=== PATIENT | female | born 1970 | race Asian ===

== ENCOUNTER → 2017-05-16 | Outpatient (CLI) | payer BC | LOC: FIMAGING 12:35 | PROVIDERS: ATTEND Family Medicine | DX: Z12.31 Encounter for screening mammogram for malignant neoplasm of breast (principal) ==

== ENCOUNTER → 2017-05-31 | Outpatient (CLI) | payer BC | LOC: FIMAGING 13:30 | PROVIDERS: ATTEND Family Medicine | DX: N63.10 Unspecified lump in the right breast, unspecified quadrant (principal) ==

== ENCOUNTER → 2017-06-24 | Outpatient (CLI) | payer BC ==
[~2017-06-24] MED LIST: BUPIVACAINE 0.5% 30 ML SDV ONE; LIDOCAINE 1% 300 MG/30 ML SDV ONE; THROMBIN (BOVINE) 5,000 UNIT VIAL TP ONE
== END ==
LOC: FIMAGING 07:23
PROVIDERS: ATTEND Family Medicine
PROC: 0HBT3ZX Excision of Right Breast, Percutaneous Approach, Diagnostic (ICD-10-PCS; principal; 2017-06-24)
DX: C50.811 Malignant neoplasm of overlapping sites of right female breast (principal); C50.511 Malignant neoplasm of lower-outer quadrant of right female breast; N60.11 Diffuse cystic mastopathy of right breast

== ENCOUNTER → 2017-07-03 | Outpatient (CLI) | payer BC ==
[~2017-07-03] MED LIST changes: -BUPIVACAINE 0.5% 30 ML SDV ONE; +GADOBUTROL 10 ML VIAL IVP ONE; -LIDOCAINE 1% 300 MG/30 ML SDV ONE; -THROMBIN (BOVINE) 5,000 UNIT VIAL TP ONE
== END ==
LOC: FIMAGING 09:06
PROVIDERS: ATTEND Surgery
DX: C50.411 Malignant neoplasm of upper-outer quadrant of right female breast (principal)
CPT/HCPCS: 0159T; A9585; C8908

== ENCOUNTER 2017-07-19 11:56 | Observation (INO) | payer BC ==
--- NOTE | 2017-07-18 20:42 | GHP ---
[f rep st] PREOP HISTORY AND PHYSICAL DATE OF ADMISSION: 07/19/2017 DATE OF SURGERY: 07/19/2017. PREOPERATIVE DIAGNOSIS: Right breast cancer. HISTORY OF PRESENT ILLNESS: The patient is a 47-year-old woman, with a new diagnosis of right breast invasive ductal carcinoma. She first developed discomfort in her outer right breast in January. She found that this was related to anxiety and stress with her job. The pain then escalated so s he went in for an ultrasound on 05/16/2017. She had a diagnostic mammogram and ultrasound performed on 05/31/2017, which showed 2 hypoechoic, solid, nodular lesions of the right breast in 6 o'clock pos ition, BI-RADS 4. An ultrasound-guided breast biopsy on 06/24/2017, revealed invasive ductal carcino ma, estrogen negative, progesterone negative, HER-2/mejia was unable to be performed, Ki-67 of 50%. Sh faby had genetic testing performed, which showed a variant of unknown significance. In addition, she mcdaniel d a breast MRI performed on 07/03/2017. This showed the node cancer in the right breast at 6 o'clock position. The 2 lesions are 1.5 cm apart. There is a small focus of abnormal enhancement in the up per-inner quadrant of the left breast, which required further evaluation. However, before she had fo llowup imaging performed, the patient decided to proceed with bilateral mastectomy. PAST MEDICAL HISTORY: None. PAST SURGICAL HISTORY: None. ALLERGIES: Neosporin. FAMILY HISTORY: Significant for coronary artery disease in her father and paternal grandfather. SOCIAL HISTORY: She is . She has 2 children. 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 She denies tobacc o, alcohol, or recreational drug use. REVIEW OF SYSTEMS: A 10-point review of systems is negative aside from the HPI. PHYSICAL EXAMINATION: GENERAL: Pleasant, well-developed, well-nourished woman, in no acute distress . HEENT: Normocephalic, atraumatic. No hearing deficits. Pupils equal and round. No scleral icte edward. Mucous membranes moist. NECK: Trachea midline. RESPIRATORY: Clear to auscultation bilateral ly. No increased work of breathing. CARDIOVASCULAR: Regular rate and rhythm. No peripheral edema. BREASTS: Performed in upright and supine position, she has evidence of previous biopsy of the righ t breast. She is tender to palpation of the right upper-outer breast. No overlying skin changes. N o nipple drainage bilaterally. No other palpable masses. LYMPH: No supraclavicular, cervical, or a xillary lymphadenopathy bilaterally. PSYCH: Mood and affect normal. NEURO: Grossly intact. IMPRESSION AND PLAN: A 47-year-old woman, with right breast invasive ductal carcinoma and a suspicio us lesion of the left upper-inner breast. She has decided to proceed with bilateral mastectomy with bilateral sentinel lymph node biopsy with reconstruction to follow. We discussed risks of surgery, i ncluding but not limited to, heart attack, stroke, blood clots, or . We discussed risk of infec tion, bleeding, damage to surrounding structures, need for axillary dissection, lymphedema. She unde rstands the risks and would like to proceed. We will be sure to a re-send for HER-2/mejia status at th e time of surgery. She had her questions answered to her satisfaction. She will receive antibiotics on-call to the operating room. The patient was additionally seen by Dr. Plummer, who agrees with the above impression and plan. /[id number]/MODL
[2017-07-19] MEDS ORDERED: ceFAZolin 2 GM/SWFI 2 GM/20 ML SYR IVP ONE (12:28)
[2017-07-19] MEDS ORDERED: LR 1,000 ML IV ONE (12:29)
[2017-07-19] MEDS ORDERED: LIDOCAINE 1% 2 ML INJ ONE (13:00)
[2017-07-19] MEDS ORDERED: LIDOCAINE 1% 2 ML INJ ID PRN (13:02)
[2017-07-19] MEDS ORDERED: GENTAMICIN SULFATE 80 MG/2 ML VIAL ONE ×2 (13:50→15:36)
[2017-07-19] MEDS ORDERED: THROMBIN (BOVINE) 20,000 UNIT SPRAY TP ONE (13:50)
[2017-07-19] MEDS ORDERED: BUPIVACAINE 0.25% 30 ML SDV ONE (13:50)
[2017-07-19] MEDS ORDERED: ceFAZolin 1 GM/5 ML SYR ONE ×2 (13:51→15:37)
[2017-07-19] MEDS ORDERED: BACITRACIN ZINC 14.2 GM OINTTUBE TP ONE (13:52)
[2017-07-19] MEDS ORDERED: BACITRACIN 50,000 UNITS/10 ML SYR IRR ONE ×2 (13:52→15:37)
[2017-07-19] MEDS ORDERED: MIDAZOLAM 2 MG/2 ML VIAL IVP ONE (13:55)
--- NOTE | 2017-07-19 13:55 | PDANEPAE ---
ANE History of Present Illness here for mastectomy ANE Past Medical History - Cardiovascular History Hx Hypertension: No Hx Arrhythmias: No Hx Chest Pain: No Hx Coronary Artery / Peripheral Vascular Disease: No Hx CHF / Valvular Disease: No Hx Palpitations: No - Pulmonary History Hx COPD: No Hx Asthma/Reactive Airway Disease: No Hx Recent Upper Respiratory Infection: No Hx Oxygen in Use at Home: No Hx Sleep Apnea: No Sleep Apnea Screening Result - Last Documented: Negative - Neurologic History Hx Cerebrovascular Accident: No Hx Seizures: No Hx Dementia: No - Endocrine History Hx Diabetes: No - Renal History Hx Renal Disorders: No - Liver History Hx Hepatic Disorders: No - Neurological & Psychiatric Hx Hx Neurological and Psychiatric Disorders: No - Cancer History Hx Cancer: Yes Cancer History Comment: NEW DX BREAST CA - Congenital Disorder History Hx Congenital Disorders: No - GI History Hx Gastrointestinal Disorders: No - Chronic Pain History Chronic Pain: Yes (RT BREAST DISCOMFORT) - Surgical History Prior Surgeries: NEG ANE Review of Systems Review of systems is: negative Review of Systems: - Exercise capacity Exercise capacity: >=4 METS METS (RN): 4 METS ANE Patient History - Allergies Allergies/Adverse Reactions: bacitracin [From Neosporin ([id number])] Allergy (Verified 07/17/17 10:18) Rash neomycin [From Neosporin ([id number])] Allergy (Verified 07/17/17 10:18) Rash polymyxin B [From Neosporin ([id number])] Allergy (Verified 07/17/17 10:18) Rash - Home Medications Home medications: home medication list seen and reviewed Home Medications: Cholecalciferol Vit D3 [Vitamin D3 (*)] 1,000 units PO DAILY 07/17/17 [Last Taken 07/12/17] Herbals/Supplements -Info Only 1 ea PO DAILY 07/17/17 [Last Taken 07/12/17] - NPO status NPO Status: no food or drink >8 hours NPO Since - Liquids (Date): 07/19/17 NPO Since - Liquids (Time): 07:00 NPO Since - Solids (Date): 07/19/17 NPO Since - Solids (Time): 04:00 - Smoking Hx Smoking Status: Never smoked - Family Anes Hx Family Hx Anesthesia Complications: NEG ANE Labs/Vital Signs - Vital Signs Vital Signs: reviewed preoperatively; see RN documention for details Blood Pressure: 111/65 Heart Rate: 78 Respiratory Rate: 16 O2 Sat (%): 96 Height: 154.94 cm Weight: 48.988 kg ANE Physical Exam - Airway Neck exam: FROM Mallampati Score: Class 1 - Pulmonary Pulmonary: no respiratory distress - Cardiovascular Cardiovascular: regular rate and rhythym - ASA Status ASA Status: I ANE Anesthesia Plan Anesthesia Plan: GA w LMA
--- NOTE | 2017-07-19 14:04 | PDHPUP ---
History & Physical Update H&P update statement: This history and physical update is based on an assessment of the patient which was completed after admission or registration (within 24 hours), but prior to the surgery/procedure. H&P update: H&P reviewed & patient examined, no change in patient's condition since H&P completed
[2017-07-19] MEDS ORDERED: fentaNYL 100 MCG/2 ML INJ ONE ×3 (14:08→16:03)
[2017-07-19] MEDS ORDERED: PROPOFOL/EMULSION 500 MG/50 ML BOTTLE IV ONE ×3 (14:10→15:41)
[2017-07-19] MEDS ORDERED: NALOXONE HCL 0.4 MG/ML INJ IVP PRN (14:44)
[2017-07-19] MEDS ORDERED: ALBUTEROL 3 ML DEYVIAL IH PRN (14:44)
[2017-07-19] MEDS ORDERED: ONDANSETRON 4 MG/2 ML VIAL IVP PRN ×2 (14:44→16:38)
[2017-07-19] MEDS ORDERED: fentaNYL 100 MCG/2 ML INJ IVP PRN (14:44)
[2017-07-19] MEDS ORDERED: DEXAMETHASONE 4 MG/ML VIAL IVP PRN (14:44)
[2017-07-19] MEDS ORDERED: PROMETHAZINE HCL 25 MG/ML INJ IVP PRN ×2 (14:44→16:38)
[2017-07-19] MEDS ORDERED: NS 500 ML IV PRN (14:44)
[2017-07-19] MEDS ORDERED: HYDROmorphONE/DILAUDID 2 MG/ML INJ IVP PRN (16:38)
--- NOTE | 2017-07-19 16:59 | POSTANESTH ---
Post Anesthetic Evaluation Cardiovascular Status: Normal, Stable Respiratory Status: Normal, Stable Level of Consciousness/Mental Status: Moderately Sleepy Pain Control: Adequate, Prn Tx Ordered Nausea/Vomiting Control: Adequate, Prn Tx Ordered Complications Possibly Related to Anesthesia: None Noted
[2017-07-19] MEDS ORDERED: HYDROmorphone HCL/NS 0.5 MG/ML SYR IVP PRN (17:00)
[2017-07-19] MEDS ORDERED: LR 1,000 ML IV SCH (17:00)
[2017-07-19] MEDS ORDERED: HYDROmorphONE/DILAUDID 2 MG/ML INJ ONE (17:32)
[2017-07-19] MEDS ORDERED: KETOROLAC 15 MG/1 ML SDV ONE (17:32)
[2017-07-19] MEDS: KETOROLAC 15 MG/1 ML SDV IVP SCH (17:34)
[2017-07-19] MEDS: HYDROmorphONE/DILAUDID 2 MG/ML INJ IVP PRN ×2 (17:36→17:44)
--- NOTE | 2017-07-19 18:05 | GOP ---
[f rep st] OPERATIVE REPORT DATE OF OPERATION: 07/19/2017 SURGEON: Brody Dean Jr., MD [employer] SUPERVISOR: Paddy Mckinley CST, by surgeon request (skilled surgical corsetier was necessary due t o the technical complexity of the case and desire to minimize patient anesthesia time). ANESTHESIA: General inhalational anesthetic. ANESTHESIOLOGIST: Dr. Davion Clarke. PREOPERATIVE DIAGNOSIS: Right breast cancer. POSTOPERATIVE DIAGNOSIS: Right breast cancer. PROCEDURE PERFORMED: Immediate bilateral breast reconstruction utilizing tissue expanders and human dermal allograft. FINDINGS: ESTIMATED BLOOD LOSS: During reconstruction was less than 10 cc. INDICATIONS: The patient is a 47-year-old female referred from Dr. Pretty Plummer after a right b reast cancer diagnosis. She elected to undergo bilateral mastectomies and was deemed an excellent ca ndidate for a nipple-sparing approach and for prepectoral placement of AlloDerm wrapped tissue expand ers. She was seen in the operating room for that purpose. DESCRIPTION OF PROCEDURE: After the risks and benefits of procedure were explained to the patient hi ghlighting bleeding, infection, need for premature tissue language tutor removal, asymmetry, spontaneous de flation, skin loss, postmastectomy pain, and need for revisional procedures, formal operative consent was obtained. She was taken to the operating room by Dr. Plummer, where uncomplicated bilateral maste ctomies with negative sentinel lymph node mapping was performed. At the completion of the mastectomi es, the patient was redraped with new instrumentation, new cauteries, new suction were utilized. The pockets were prepared by obtaining meticulous hemostasis. The tissue expanders had been previously prepared by thoroughly testing the tissue language tutor, evacuating air and filling with 150 cc of measura ble air. The tissue expanders were then wrapped completely using AlloDerm acellular dermis graft she ets. A complete coverage was obtained. The grafts are soaked in triple antibiotic saline. Skin edg es were wiped down with triple antibiotic saline. The pockets were irrigated with triple antibiotic saline. The surgeon's gloves were changed. 15-round drains were placed. The tissue expanders were then placed into the correct anatomic position and sutured down to the ches t wall in the appropriate position using 2-0 PDS suture. The skin edges were then reapproximated usi ng everting deep dermal 3-0 Monocryl suture and further everted using surgical tyree. The drains w ere placed to bulb suction. Prior to closure, 15 cc of 0.25% plain Marcaine was instilled in each po cket. She had good size and shape symmetry with good placement of the tissue expanders. She had lig ht sterile dressings applied in the operating room. She was extubated in the OR, taken to recovery r oom awake, in stable condition. DRAINS: 2 RD drains were placed. TISSUE EXPANDERS: Allergan Natrelle [id number], 350 cc devices filled to 150 cc with air bilaterally . COMPLICATIONS: No complications. /[id number]/MODL
[2017-07-19] MEDS ORDERED: ceFAZolin 2 GM/DEXTROSE 100 ML IV SCH (22:00)
[2017-07-19] MEDS: ceFAZolin 2 GM/SWFI 2 GM/20 ML SYR IVP SCH (22:18)
[2017-07-20] MEDS: KETOROLAC 15 MG/1 ML SDV IVP SCH ×4 (00:42→18:07)
[2017-07-20] MEDS: ceFAZolin 2 GM/SWFI 2 GM/20 ML SYR IVP SCH (06:07)
[2017-07-20] MEDS: HYDROCODONE/APAP 5/325 TAB PO PRN ×2 (07:45→15:04)
--- NOTE | 2017-07-20 08:34 | SOAPPROG ---
SOAP Progress Note Assessment/Plan: Assessment: POD # 1 s/p nipple sparing mastectomy with reconstruction Doing well Some dizziness when ambulating Home later today or more likely tomorrow S: Some pain O: Sitting on bed, at bedside No obvious necrosis of flaps JPs with serosanguinous fluid Plan: 07/20/17 08:34 07/20/17 08:47 Objective: Vital Signs Temp Pulse Resp BP Pulse Ox 36.6 C 64 15 99/50 L 95 07/20/17 08:19 07/20/17 08:19 07/20/17 08:19 07/20/17 08:19 07/20/17 08:19 07/19/17 07/20/17 07/21/17 05:59 05:59 05:59 Intake Total 1370 870 Output Total 360 45 Balance 1010 825 ICD10 Worksheet Patient Problems: Problems Problem Status Onset Breast cancer Acute - ICD10 Problem Qualifiers (1) Breast cancer
--- NOTE | 2017-07-20 13:03 | ASMTCMCOM ---
CM Note CM Note Notes: Pt admitted for bilateral mastectomy w/ reconstruction. 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 No therapies ordered, per RN pt will dc home inedpendent w/support of when medically stable. CM available for any changes. DC Plan: Independent Date Signed: 07/20/2017 01:03 PM Electronically Signed By:Julianna Morrison RN
[2017-07-21] MEDS: KETOROLAC 15 MG/1 ML SDV IVP SCH ×3 (00:15→12:12)
[2017-07-21] MEDS: HYDROCODONE/APAP 5/325 TAB PO PRN (12:12)
[2017-07-21 16:17] VITALS: BP 100/48
--- NOTE | 2017-07-21 16:40 | SOAPPROG ---
SOAP Progress Note Assessment/Plan: Assessment: DOING WELL STATUS POST BILATERAL MASTECTOMIES/MINIMAL DRAINAGE/AFEBRILE/VITAL SIGNS STABLE Plan: HOME TODAY OF A AND FOLLOW UP WITH DR. DELACRUZ AND KAYKAY IN NEXT WEEK/ INSTRUCTIONS 07/21/17 16:40 Objective: Vital Signs Temp Pulse Resp BP Pulse Ox 36.6 C 80 14 100/48 L 95 07/21/17 16:14 07/21/17 16:14 07/21/17 16:14 07/21/17 16:14 07/21/17 16:14 07/20/17 07/21/17 07/22/17 05:59 05:59 05:59 Intake Total 1370 1220 Output Total 360 145 65 Balance 1010 1075 -65 ICD10 Worksheet Patient Problems: Problems Problem Status Onset Breast cancer Acute
--- NOTE | 2017-07-22 17:27 | GOP ---
[f rep st] OPERATIVE REPORT DATE OF OPERATION: 07/19/2017 SURGEON: Pretty Plummer MD ANESTHESIA: General. ANESTHESIOLOGIST: Dr. Davion Clarke PREOPERATIVE DIAGNOSIS: Right breast cancer. POSTOPERATIVE DIAGNOSIS: Right breast cancer. PROCEDURE PERFORMED: Bilateral nipple-sparing mastectomy and bilateral sentinel lymph nodes. FINDINGS: Negative sentinel lymph nodes. ESTIMATED BLOOD LOSS: 100 cc. INDICATIONS: 47-year-old woman who was diagnosed with right breast cancer. She elected to undergo b ilateral mastectomy and desired immediate reconstruction. DESCRIPTION OF PROCEDURE: Patient was brought into the operating room, placed supine on the table an d general anesthesia was administered. Her bilateral neck, chest and axilla were prepped and draped in the usual sterile fashion. I started the operation on the left side. I made an incision in the i nframammary fold on the lateral aspect of the breast. I created superior and inferior skin flaps. I then used Hegar dilators to create pockets between the Andres's ligaments. I divided the tissue. M y dissection occurred to the sternum, clavicle, mid axillary line and the inframammary fold. I passe d the breast off the field including the pectoralis fascia. It was marked short superior, long later al. I felt the flaps and the flap in the upper outer was still a bit thick and so I took additional tissue in this area. We also took tissue underneath the nipple. I then used the gamma probe to iden tify the sentinel lymph node in the left axilla. This was an extremely small lymph node and took alex te a bit of time to identify it. Once I was able to isolate it, I excised it. The background was qu iet. I submitted it to Pathology for frozen. Hemostasis was achieved. Dr. Dean was able to star t reconstruction on the left breast. I then moved to the right side and made an incision on the lateral aspect of the inframammary fold. Again, I created superior and inferior skin flaps. Dissection occurred to the clavicle, sternum, inf ramammary fold and mid axillary line. I removed the breast including the pectoralis fascia. It was marked short superior, long lateral. I then used the gamma probe to identify the right sentinel node . This was much easier than on the left side. This was submitted to Pathology for frozen. Dr. Dean was then able to complete reconstruction on this side. /[id number]/MODL
== END 2017-07-21 17:50 | disposition home or self-care (01) ==
LOC: F3E 11:56 → F1N 15:17
PROVIDERS: ADMIT Surgery; ATTEND Surgery
PROC: 0HTV0ZZ Resection of Bilateral Breast, Open Approach (ICD-10-PCS; principal; 2017-07-19 14:30)
PROC: 0HHV0NZ Insertion of Tissue Expander into Bilateral Breast, Open Approach (ICD-10-PCS; 2017-07-19 14:30)
PROC: 0HR Skin and Breast, Replacement (ICD-10-PCS; 2017-07-19 14:30)
PROC: 07B50ZZ Excision of Right Axillary Lymphatic, Open Approach (ICD-10-PCS; 2017-07-19 14:30)
PROC: 07B60ZZ Excision of Left Axillary Lymphatic, Open Approach (ICD-10-PCS; 2017-07-19 14:30)
PROC: 3E0W3KZ Introduction of Other Diagnostic Substance into Lymphatics, Percutaneous Approach (ICD-10-PCS; 2017-07-19 14:30)
DX: C50.411 Malignant neoplasm of upper-outer quadrant of right female breast (principal); N63.22 Unspecified lump in the left breast, upper inner quadrant
CPT/HCPCS: 19303; 19357; 38525; 38900; A9520; G0378; J0690; J1170; J1580; J1885; J2250; J2704; J3010; Q4116

== ENCOUNTER → 2017-09-12 | Outpatient (CLI) | payer BC | LOC: FIMAGING 14:54 | PROVIDERS: ATTEND Surgery | DX: C50.411 Malignant neoplasm of upper-outer quadrant of right female breast (principal); Z95.828 Presence of other vascular implants and grafts ==